=== PATIENT | female | born 1945 | race Caucasian/White ===

== ENCOUNTER 2017-05-01 07:35 | Day surgery (SDC) | payer MEDICARE ==
[~2017-05-01] VITALS: Ht 157.5 cm; Wt 66.1 kg
[2017-05-01] VITALS (7 sets, daily range): BP systolic 127–156; BP diastolic 59–77; PULSE 59–99; RESP 10–18; O2SAT 95–100
--- NOTE | 2017-05-01 06:37 | PCM.HPANE ---
Patient Data Surgeon Admitting Provider: Attending Provider:Jimenez Jones MD Primary Care Physician:Ceasar Rios Other Provider:Michael Boles Anesthesia Reason for Visit Left Breast Cancer Ht/WT & BMI Height (Feet): 5 Height (Inches): 2 Weight (Kilograms): 65.77 Body Mass Index 26.00 Allergies Coded Allergies: No Known Allergies (Unverified , 04/30/17) Past Anesthesia History Anesthesia History: Denies:: Abnormal Airway, Anesthesia Reactions, Difficult Intubation, Fam Anesthesia Reaction, Fam Malignant Hypertherm, Malignant Hyperthermia Diabetes History Hx Diabetes?: No MRSA MRSA: No Medications Home Meds Incl Beta Dayday: No Reported Medications Acetaminophen (Tylenol Arthritis)650 Mg Tablet.er650 Mg PO 05/01/17 Cholecalciferol (Vitamin D3) (Vitamin D3)400 Unit Tab.nkwz573 Unit PO DAILY 04/30/17 Calcium Carbonate (Tums)500 Mg Tab.pcyt747 Mg PO DAILY 30 Days 04/30/17 Levothyroxine (Synthroid)112 Mcg Yaysph722 Mcg PO DAILY Ref 0 04/30/17 History History of ENT Problems?: No HEENT History: Positive for:: Cataracts (bilateral surgery) Denies:: Abnormal Airway Difficult Intubation Glaucoma Hearing Problem TMJ Denture Type: Full- Upper Full- Lower Teeth Condition: No Teeth Hx of Heart Problems?: No Cardiovascular History: Denies:: AICD Abdominal Aortic Aneurism Atrial Fibrillation Chest Pain Congestive Heart Failure Coronary Artery Disease Edema Heart Murmur Hypertension Irregular Heartbeat Pacemaker Peripheral Vascular Hx of Respiratory Problem?: Yes Respiratory History: Denies:: Asthma COPD Emphysema Oxygen Administration Pneumonia Tuberculosis Use of C-PAP Machine (+CASI- snores, did not tolerate CPAP) Hx Neurologic Problems?: No Neurological History: Denies:: Alzheimer's Disease CVA Dementia Headaches Multiple Sclerosis Parkinson's Disease Seizures TIA Hx of GI Problems?: No Hx of Problems?: No Genitourinary History: Denies:: Kidney Stones Urinary Tract Infection Female Hx: Positive for:: Problems with Breasts? (left breast ca current admission problem) Denies:: Currently (hysterectomy) Skin History: Positive for:: History Skin Disorders? (right side breast bx thursday- dressing in place) Denies:: Pressure Ulcers Hx Musculoskeletal Problems?: Yes Musculoskeletal History: Positive for:: Back Injury (cervical fusions x 3) Denies:: Fibromyalgia Joint Replacement Musculoskeletal Trauma Myasthenia Gravis Osteoarthritis Rheumatoid Arthritis Systemic Lupus Hx of Psycho/Social Problems?: No Psycho Social History: Denies:: Anxiety Hx Depression Hx Surgeries?: Yes (hysterectomy, cervical fusion x 3. cataracts , breast bx) Hx Any Other Health Problems?: Yes Other History: Positive for:: Cancer (left breast current admission ) Thyroid Disease (on rx) History Blood Transfusions: Positive for:: Accept Blood Products? Denies:: Blood Transfusions Hx Diabetes: No Hx Alcohol Use: NoHx Substance Use: NoHave You Smoked inLast 12 mo: No Stop/Bang S-Snoring: Do You Snore Loudly: Yes T-Tired: feel tired, fatigued: Yes O-Obsered: Observed not breath: Yes P-Blood Pressure: treated: No B- Body Mass Index > 35 kg/m2: No A- Age over 50: Yes N- Neck Large Circumference: No G- Gender Male: No CASI Total Score: 4 CASI Risk Assessment: High Risk, =/>3 Yes CASI Category 4 OutPt Procedure: Yes Risk Assessment Category Category 1A: Patient has history of documented sleep apnea, and HAS NOT received any narcotic, sedative or anesthesia administration during this stay. Category 1B: Patient has history of documented sleep apnea, and HAS received any narcotic , sedative or anesthesia administration during this stay Category 2: Patient has SUSPECTED Obstructive Sleep Apnea, and HAS received any narcotic , sedative or anesthesia administration during this stay. Category 3: Patient has SUSPECTED Obstructive Sleep Apnea and HAS NOT received narcotic, sedative or anesthesia administration during this stay. Category 4: Outpatient in Procedural Areas with known sleep apnea or who screen positive for High Risk via the STOP/BANG questionnaire. Exam Exam General Appearance: Alert, Oriented X3, Cooperative, No Acute Distress HEENT/AIRWAY: MP 2 Lungs: Clear to Auscultation, Normal Air Movement Heart: Exam Unremarkable, Regular Rate/Rhythm, No Murmurs/Rubs/Gallops Plan Impression Patient chart reviewed, patient interviewed and anesthestic plan with risks, benefits, and alternatives discussed, and informed consent obtained. NPO per Anesth. Guidelines: Yes ASA Physical Status: ASA2 Mod Systemic Disease Anesthetic Plan: GA Bene/Risks/Altern/Consents: Yes HP Complete Prior to Induction: Yes Ruchi White MD May 01, 2017 06:37
[~2017-05-01 07:35] MED LIST: CALC500T9 PO; CHOL400T3 PO; CeFAZolin Inj 2 GM in IV Premix 1 EACH IV ONE; LEVO112T3 PO
[2017-05-01] MEDS ORDERED: Propofol 10,000 mCg/mL 20 mL Inj ONE (07:36)
[2017-05-01] MEDS ORDERED: Glycopyrrolate 0.2 MG/ML 1mL Inj ONE (07:36)
[2017-05-01] MEDS ORDERED: Dexamethasone 4 mg/mL Inj ONE (07:36)
[2017-05-01] MEDS ORDERED: Ondansetron 2 mg/mL 2 mL Inj ONE (07:36)
[2017-05-01] MEDS ORDERED: fentaNYL-PF 50 mCg/mL 2 mL Inj ONE (07:36)
[2017-05-01] MEDS: Lactated Ringer's 1,000 ML IV SCH ×2 (07:45→10:03)
[2017-05-01] MEDS ORDERED: ACET-2766 PO (08:30)
[2017-05-01] MEDS ORDERED: Bupivacaine-MPF 0.5% W/EPI 30 mL Inj INFILTRATE ONE (10:29)
[2017-05-01] MEDS ORDERED: Lactated Ringer's 500 ML IV PRN (10:31)
[2017-05-01] MEDS ORDERED: Lactated Ringer's 1,000 ML IV SCH (10:31)
[2017-05-01] MEDS ORDERED: fentaNYL-PF 50 mCg/mL 2 mL Inj IVPUSH PRN (10:35)
[2017-05-01] MEDS ORDERED: hydrALAZINE 20 mg/mL Inj IVPUSH PRN (10:35)
[2017-05-01] MEDS ORDERED: Labetalol 5 mg/mL 4 mL Inj IV PRN (10:35)
[2017-05-01] MEDS ORDERED: Atropine 0.4 mg/mL Inj IVPUSH PRN (10:35)
[2017-05-01] MEDS ORDERED: Ondansetron 2 mg/mL 2 mL Inj IVPUSH PRN (10:35)
[2017-05-01] MEDS ORDERED: MetoCLOpramide 5 mg/mL 2 mL Inj IVPUSH PRN (10:35)
[2017-05-01] MEDS ORDERED: Phenylephrine 10,000 mCg/mL Inj IVPUSH PRN (10:35)
[2017-05-01] MEDS ORDERED: Dexamethasone 4 mg/mL Inj IVPUSH PRN (10:35)
[2017-05-01] MEDS ORDERED: HYDROmorphone 1 mg/mL Inj IVPUSH PRN (10:35)
[2017-05-01] MEDS ORDERED: EPHEDrine Sulfate 50 mg/mL Inj IVPUSH PRN (10:35)
--- NOTE | 2017-05-01 11:12 | DRSVH ---
PROCEDURE: NM SENTINEL NODE INJECTION ONLY, LEFT BREAST RADIOPHARMACEUTICAL: 0.5 mCi Millipore filtered Tc-99m sulfur colloid. INDICATIONS: left breast cancer PROCEDURE: The indications, alternatives, benefits, risks, and complications of the procedure were explained to the patient. Written informed consent was obtained and placed in the chart. The area around the nip ple was prepped and draped in a sterile fashion. Tc-99m sulfur colloid was injected in the outer edg e of the areola in the left breast. No image was obtained. IMPRESSION: Administration of radiotracer into the left breast periareolar region for intra-operativ e sentinel lymph node localization. Dictated by: Abraham Dillard M.D. on 05/01/2017 at 11:10 Approved by: Abraham Dillard M.D. on 05/01/2017 at 11:11
[2017-05-01] MEDS ORDERED: Ketorolac 15 mg/mL Inj IVPUSH PRN (11:15)
[2017-05-01] MEDS ORDERED: HYDROcodone-APAP 5-325 mg Tablet PO PRN (11:15)
--- NOTE | 2017-05-01 11:18 | PCM.DISURG ---
Surgical Discharge Instruction Date of Service May 01, 2017 Dates of Hospitalization Date of Hospital Admission Providers Admitting Physician: Primary Care Physician: Ceasar Rios Attending Physician: Jimenez Jones MD Discharge Diagnosis Discharge Diagnosis Left breast cancer Diet Discharge Diet: No restrictions Activity Discharge Activity-General: No restrictions Dressing and Incisional Care Dressing Care: Allow Steri Stripes to fall off, Remove outer dressing after 24 hrs Hygiene: May shower after (24 hours) Follow Up Plan Follow Up Plan With Dr. Jones in 5 days to review pathology and make plans for next steps. Call your provider for: Fever (over 101.5), Discharge @ incision, pus discharge Jimenez Jones MD May 01, 2017 11:18
--- NOTE | 2017-05-01 11:24 | PCM.SURGOP ---
Surgical Operative Report Date of Service: May 01, 2017 Pre Operative Diagnosis Left breast cancer Post Operative Diagnosis Same Procedure: Left partial mastectomy, left axillary sentinel lymph node biopsy Surgeon and Pattern Developer: Surgeon: Jimenez Jones MD Assistants: Qian Rodriguez DO Indication for Procedure 72-year-old woman who developed a slowly enlarging palpable mass in the left breast upper outer quadrant. By ultrasound, the mass measured 2.5 cm. She had a percutaneous biopsy which demonstrated invasive ductal carcinoma with mucinous features, ER/ND positive, [id number]. Plans were made to proceed with breast conserving surgery, with left partial mastectomy and left axillary sentinel lymph node biopsy. In the meantime, breast MRI showed a small area of enhancement in a ductal distribution in the right breast. 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 Findings: There was a single sentinel node, with ex vivo gamma count of 469. The background count in the left axilla was 12. A small amount of node bearing tissue was removed adjacent to that, labeled as non-sentinel node. Procedure Details Preoperatively, she underwent left breast radiotracer injection for sentinel node identification. She was then brought to the operating room where she underwent smooth induction of general anesthesia. There was a good radiotracer signal in the left axilla, so methylene blue dye was not used. She was placed in the supine position with the left arm out, and was prepped and draped in wide sterile fashion. A procedural pause was performed according to the SCOAP checklist, and all were found to be in agreement. A transverse incision was made in the left breast upper outer quadrant, over the palpable mass. Skin flaps were raised superiorly and inferiorly. Circumferential dissection was carried out around the mass, down to the pectoralis muscle for the deep margin. The mass was dissected free from the surrounding tissue, oriented with suture. A specimen radiograph confirmed that the mass had been successfully localized along with the mammographic clip. It was sent for permanent pathology. The cavity was marked with hemoclips. The breast parenchyma was closed with an interrupted 3-0 Vicryl suture, and a running 4-0 Vicryl subcuticular stitch. A curvilinear incision was then made at the inferior border of the hairbearing skin in the left axilla. Dissection was carried down through the subcutaneous tissue until the axillary fascia was incised. Using the gamma probe as a guide, the area of maximum radiotracer activity was identified and dissected free from the surrounding structures. This corresponded to a single sentinel node, which was not pathologically enlarged. It was slightly firm, but not obviously pathologic. The ex vivo gamma count was 469. The background count after removal in the left axilla was 12. I removed a small amount of adjacent node bearing tissue, and sent that as left axillary non-sentinel node, for permanent pathology. The axillary fascia was closed with an interrupted 3-0 Vicryl suture. The skin incision was closed with a running 4-0 Vicryl subcuticular stitch. Steri-Strips and sterile dressings were applied. At the end the case all needle and sponge counts were correct 2. The patient was awakened from anesthesia without difficulty, and taken to the recovery room in satisfactory condition, having tolerated the procedure well. Complications There were no periprocedural complications identified. Surgical Specimen Removed: Yes Specimen sent to Pathology: Yes Surgical Specimen description: Left breast tissue. Left axillary sentinel node. Left axillary non-sentinel node. Anesthetic Plan: GA Grafts, Implants: None Output, Estimated Blood Loss: 20 Blood Administration during mg: No Drains: None Catheters: None Post Operative Plan Plan will be to come back for wire localized right partial mastectomy for the small area of DCIS, once final pathology is back from left breast tissue and sentinel node. copies to: Ceasar Rios; Shant Merino MD, Joshua D MD May 01, 2017 11:24
--- NOTE | 2017-05-01 12:28 | PCM.ANEP1 ---
Post Anesthesia PACU Phase 1 Assessment Vital Signs Vital Signs Date Time Temp Pulse Resp B/P Pulse Ox O2 Delivery O2 Flow Rate FiO2 05/01/17 12:22 59 18 153/59 96 Room Air 05/01/17 11:40 68 12 150/70 100 Nasal Cannula 2 05/01/17 11:30 79 11 147/74 99 Nasal Cannula 2 05/01/17 11:20 99 10 156/66 100 Simple Mask 8 05/01/17 11:15 35.9 98 10 154/77 98 Simple Mask 8 05/01/17 07:54 36.4 69 12 127/68 95 Room Air Anesthetic Administered: GA Level of Alertness: Awake, talking GOODMAN's with Equal Strength: No Pain: No Nausea or Vomiting: No CV Function & Hydration Stable: Yes Airway Device: Oxygen Delivery: Simple Mask Lungs: Clear to Auscultation, Normal Air Movement PACU Phase 2 Assessment Complications: No Follow up Care: No Patient Instructions Provided: N/A Ruchi White MD May 01, 2017 12:28
--- NOTE | 2017-05-05 07:04 | DRSVH ---
SPECIMEN LEFT BREAST: 05/01/2017 CLINICAL: Breast specimen. Correlation is made to exams dated: 04/28/2017 MRI biopsy, 04/28/2017 mammogram, 04/14/2017 ultrasound - [facility], and 04/07/2017 breast MRI - [facility]. A partial mastectomy specimen was imaged for the concerning spiculated oval mass located in the left breast at 1 o'clock posterior depth. This was described on the previous mammography, ultrasound, an d MRI reports. IMPRESSION: SPECIMEN The imaged specimen includes the lesion and a biopsy clip. This exam was interpreted at Station ID: [id number]. Osbaldo tao/deedee:05/04/2017 08:30:14 copy to: TY ABDALLA Additional referring physicians: LOTUS BALDIWN, HERMAN VARNERTR
--- NOTE | 2017-05-05 11:23 | PATH ---
SURGICAL PATHOLOGY Attending Physician:Alessia Rodriges CASE STATUS: Signed Out * Amended * PATIENT NAME: MARICHUY OPOLE PID: [id number] : 1945 DATE COLLECTED:05/01/2017 22:00 SPECIMEN: 1: Breast Mass, Excision 2: [place] Lymph Node 3: Lymph Node, Biopsy CLINICAL HISTORY: LEFT BREAST CANCER 1). LEFT BREAST TISSUE, SHORT STITCH SUPERIOR, LONG STITCH LATERAL, OUT AT 10:27 2). LEFT AXILLARY SENTINEL NODE BIOPSY OUT AT 10:53 3). LEFT NON-SENTINEL NODE OUT AT 10:57 FINAL DIAGNOSIS: 1.LEFT BREAST EXCISIONAL SPECIMEN: INFILTRATING CARCINOMA (SEE CAP CANCER SUMMARY BELOW). 2.LEFT AXILLARY SENTINEL LYMPH NODE: POSITIVE FOR METASTATIC TUMOR (SEE CAP CANCER SUMMARY BELOW). 3.LEFT NON-SENTINEL LYMPH NODE: ADIPOSE TISSUE WITH NO LYMPH NODE IDENTIFIED. CAP CANCER CASE SUMMARY INVASIVE CARCINOMA OF THE BREAST: PROCEDURE: EXCISIONAL SPECIMEN LYMPH NODE SAMPLING: SINGLE SENTINEL LYMPH NODE (PART 2) SPECIMEN LATERALITY: LEFT TUMOR SITE: UPPER OUTER QUADRANT TUMOR SIZE: 3.8 X 2.8 X 2.1 CM HISTOLOGIC TYPE: INFILTRATING DUCTAL CARCINOMA WITH FOCAL MUCINOUS FEATURES. HISTOLOGIC GRADE: HAN HISTOLOGIC SCORE 7 OF 9 Glandular/Tubular differentiation: Score 3 of 3 Nuclear Pleomorphism: Score 2 of 3 Mitotic Rate: Score 2 of 3 Overall Grade: Grade 2 of 3 (Intermediate grade) DUCTAL CARCINOMA IN SITU: Size (Extent) of DCIS: MULTIPLE FOCI IN ASSOCIATION WITH THE INFILTRATING CARCINOMA Architectural patterns: SOLID AND CRIBRIFORM Nuclear grade: Grade INTERMEDIATE Necrosis: ABSENT MARGINS INVASIVE CARCINOMA: Anterior: LESS THAN 0.1 CM Posterior: LESS THAN 0.1 CM Superior: 0.6 CM Inferior: 0.2 CM Medial: 0.4 CM Lateral: 0.1 CM DUCTAL CARCINOMA IN SITU: Anterior: 0.1 CM Posterior: 0.1 CM Superior: LESS THAN 0.1 CM Inferior: DCIS FOCALLY TOUCHES INKED MARGIN (POSITIVE MARGIN) Medial: 0.4 CM Lateral: 0.1 CM LYMPH NODES Total number of lymph nodes examined: ONE Number of sentinel lymph nodes examined: ONE Lymph Node Involvement: Number of lymph nodes with macrometastases: ONE Extranodal Extension: ABSENT Method of Evaluation of [place] Lymph Nodes: H&E SECTIONS LYMPH-VASCULAR INVASION: NEGATIVE PATHOLOGIC STAGING: AJCC, 7th ed., 2010 PRIMARY TUMOR: pT2 REGIONAL LYMPH NODES: pN1a (sn) (corrected diagnosis-previous typographical error) ANCILLARY STUDIES: Results obtained from operative report. BIOMARKERS PERFORMED ON PREVIOUS BIOPSY Estrogen Receptor (ER) Status: POSITIVE Progesterone Receptor (PgR) Status: POSITIVE HER2 (by immunohistochemistry): NEGATIVE BY IMMUNOHISTOCHEMISTRY [id number] NOTE: AMENDMENT This amendment report is issued at this time in order to correct a typographical error in the original report. In the CAP cancer summary, the original report indicates "Regional Lymph Nodes: pNa (sn)", whereas it should read pN1a (sn). The lymph node staging is therefore corrected to read pN1a (sn). GROSS DESCRIPTION: The specimens are received in formalin, labeled with the patient's name, and sublabeled as the following: (1) left breast tissue; (2) left axillary sentinel node biopsy; (3) left non-sentinel node. (1) The specimen consists of a piece of breast tissue (2.4 cm AP, 3.5 cm SI, 4.4 cm ML) with no overlying skin. The specimen is oriented with 2 black sutures (short-superior, long-lateral). No localization wire is present. The specimen is serially sectioned ML into 15 slices with the medial and lateral resection margins slices #1 and #15 respectively. The breast tissue is fatty and contains a scott-white solid firm thkh-ivil-uatrdoiwmldsh mass (3.8 x 2.8 x 2.1 cm) within slices #2-#14. The mass is less than 0.1 cm on the anterior, less than 0.1 cm from the posterior, 0.6 cm from the superior, 0.2 cm from the inferior, 0.4 cm from the medial, and 0.3 cm from the lateral resection margins. No other nodules, masses or lesions are identified. Ink code: purple-anterior; yellow-posterior; black-superior; orange-inferior; green-medial; blue-lateral. Section code: (1A-1B) lateral resection margin, perpendicularly sectioned; (1C-1D) slice #2, bisected and submitted SI; (1E-1F) slice #3, bisected and submitted SI; (1G-1H) slice #4, bisected and submitted SI; (1I-1J) slice #5, bisected and submitted SI; (1K-1L) slice #6, bisected and submitted SI; (1M-1N) slice #7, bisected and submitted SI; (1O-1P) slice #8, bisected and submitted SI; (1Q) slice #9; (1R-1S) slice #10, bisected and submitted SI; (1T-1U) slice #11, bisected and submitted SI; (1V-1W) slice #12, bisected and submitted SI; (1X-1Y) slice #13, bisected and submitted SI; (1Z-1AA) slice #14, bisected and submitted SI; (1BB-1CC) lateral resection margin, perpendicularly sectioned. Specimen entirely submitted. (2) The specimen consists of a lymph node (2.2 x 1.6 x 0.8 cm). Section code: (2A-2B) one lymph node, serially sectioned. Specimen entirely submitted. (3) The specimen consists of multiple pieces of adipose tissue (4.5 x 2.5 x 0.6 cm in aggregate). No lymph nodes are identified. Section code: (3A-3C) adipose tissue. Specimen is entirely submitted. Note: Approximate total fixation time in formalin for all specimens-53 hours and 30 minutes using a collection date of May 01, 2017 with collection times of [id number]. 05/03/17 JM MICRO DESCRIPTION: Sections from part 1 are from an excisional specimen from the left breast. The grossly-described mass is an infiltrating ductal carcinoma which generally has a nodular infiltrative pattern. Focal areas of mucinous change are also present. The tumor is of intermediate nuclear grade with intermediate mitotic activity and little or no tubular differentiation. This equates to a Paauilo score of 7 out of 9, which is an intermediate grade tumor (2 of 3). Shrinkage artifact is quite prominent, and in some areas it is difficult to ascertain whether this might represent vascular invasion. For this reason, immunohistochemistry is performed utilizing antibodies against CD31. The areas that are studied are those that are most suspicious for possible vascular invasion, In these areas the suspicious areas are negative, which equates to prominent shrinkage artifact with no evidence of vascular invasion. DCIS is present in multiple areas, and it is of both a solid and cribriform type with intermediate nuclear grade and no definite necrosis. The DCIS focally touches the inked margin in one small focus in the inferior margin. It is less than 0.1 cm from both the superior and lateral margins. DCIS is present 0.5 cm from the posterior margin. The infiltrating carcinoma is 0.1 cm from the lateral margin, less than 0.1 cm from the posterior margin. There are focal areas of necrosis present within the infiltrating component of this tumor. Sections from part 2 are from a left axillary sentinel lymph node. The lymph node is positive for metastatic carcinoma with multiple foci of tumor present. The largest tumor focus measures 0.4 cm in maximum dimension. There is no evidence of extranodal extension. Part 3 consists of adipose tissue with no evidence of lymph node. This test was developed and its performance characteristics determined by [employer]. It has not been cleared or approved by the [place]. S. Food and Drug Administration. The FDA has determined that such clearance or approval is not necessary. This test is used for clinical purposes. It should not be regarded as investigational or for research. ICD-9 CODES: CPT CODES: 1: 20746, 72975 2: 46313 3: 25599 AMENDMENT(S): Amended: 05/07/2017 by Sunshine Retana Reason:Typographical Error Previous Signout Date: 05/05/2017 Electronically Signed Out Bret Haines MD [facility] [address], [place] [address] Technical component performed at [facility], [facility] [address], [place], [address]
== END 2017-05-01 23:59 | disposition home or self-care (01) ==
LOC: SAS 07:35
PROVIDERS: ATTEND Student in an Organized Health Care Education/Training Program
DX: C50.412 Malignant neoplasm of upper-outer quadrant of left female breast (principal); E03.9 Hypothyroidism, unspecified; G47.61 Periodic limb movement disorder; M85.80 Other specified disorders of bone density and structure, unspecified site; M19.90 Unspecified osteoarthritis, unspecified site; G25.81 Restless legs syndrome; G47.33 Obstructive sleep apnea (adult) (pediatric); Z86.010 Personal history of colon polyps; Z90.710 Acquired absence of both cervix and uterus; Z87.891 Personal history of nicotine dependence; Z17.0 Estrogen receptor positive status [ER+]
CPT/HCPCS: 19301; 38525; 38792; 76098; A9541; J0690; J1100; J1885; J2250; J2405; J3010; J7120

== ENCOUNTER 2017-05-25 09:40 | Day surgery (SDC) | payer MEDICARE ==
[2017-05-25] VITALS (12 sets, daily range): BP systolic 106–182; BP diastolic 55–80; PULSE 64–106; RESP 10–20; O2SAT 87–99
[~2017-05-25] VITALS: Ht 157.5 cm; Wt 68.3 kg
--- NOTE | 2017-05-25 06:47 | PCM.HPANE ---
Patient Data Surgeon Admitting Provider: Attending Provider:Jimenez Jones MD Primary Care Physician:Ceasar Rios Other Provider:Michael Boles Anesthesia Reason for Visit Right Breast Dcis Ht/WT & BMI Height (Feet): 5 Height (Inches): 2 Weight (Kilograms): 66.67 Body Mass Index 27.00 Allergies Coded Allergies: No Known Allergies (Unverified , 04/30/17) Past Anesthesia History Anesthesia History: Denies:: Abnormal Airway, Anesthesia Reactions, Difficult Intubation, Fam Anesthesia Reaction, Fam Malignant Hypertherm, Malignant Hyperthermia Diabetes History Hx Diabetes?: No MRSA MRSA: No Medications Reported Medications Acetaminophen (Tylenol Arthritis)650 Mg Tablet.er650 Mg PO 05/01/17 Cholecalciferol (Vitamin D3) (Vitamin D3)400 Unit Tab.npmm912 Unit PO DAILY 04/30/17 Calcium Carbonate (Tums)500 Mg Tab.fjwi813 Mg PO DAILY 30 Days 04/30/17 Levothyroxine (Synthroid)112 Mcg Cikieg556 Mcg PO DAILY Ref 0 04/30/17 History History of ENT Problems?: No HEENT History: Positive for:: Cataracts (bilateral surgery) Denies:: Abnormal Airway Difficult Intubation Hearing Problem TMJ Hx of Heart Problems?: No Cardiovascular History: Denies:: AICD Abdominal Aortic Aneurism Atrial Fibrillation Chest Pain Congestive Heart Failure Edema Heart Murmur Hypertension Irregular Heartbeat Pacemaker Hx of Respiratory Problem?: Yes Respiratory History: Denies:: Asthma COPD Emphysema Oxygen Administration Pneumonia Tuberculosis Use of C-PAP Machine (CASI +, snores, does not tolerate CPAP) Hx Neurologic Problems?: No Neurological History: Denies:: Alzheimer's Disease CVA Dementia Dizziness Headaches Multiple Sclerosis Parkinson's Disease Seizures TIA Hx of GI Problems?: No Hx of Problems?: No Genitourinary History: Denies:: Kidney Stones Urinary Tract Infection Female Hx: Positive for:: Problems with Breasts? (bilateral breast ca current admission problem) Denies:: Currently (hysterectomy) Skin History: Denies:: History Skin Disorders? Pressure Ulcers Hx Musculoskeletal Problems?: Yes Musculoskeletal History: Positive for:: Back Injury (hx of cervical fusions x 3) Denies:: Fibromyalgia Joint Replacement Musculoskeletal Trauma Myasthenia Gravis Osteoarthritis Rheumatoid Arthritis Systemic Lupus Hx of Psycho/Social Problems?: No Psycho Social History: Denies:: Anxiety Hx Depression Hx Surgeries?: Yes (cervical fusion, left partial mastectomy) Hx Any Other Health Problems?: Yes Other History: Positive for:: Cancer (bilateral breast) Thyroid Disease History Blood Transfusions: Denies:: Blood Transfusions Hx Diabetes: No Hx Alcohol Use: NoHx Substance Use: NoHave You Smoked inLast 12 mo: No Stop/Bang S-Snoring: Do You Snore Loudly: Yes P-Blood Pressure: treated: No B- Body Mass Index > 35 kg/m2: No A- Age over 50: Yes N- Neck Large Circumference: No G- Gender Male: No Risk Assessment Category Category 1A: Patient has history of documented sleep apnea, and HAS NOT received any narcotic, sedative or anesthesia administration during this stay. Category 1B: Patient has history of documented sleep apnea, and HAS received any narcotic , sedative or anesthesia administration during this stay Category 2: Patient has SUSPECTED Obstructive Sleep Apnea, and HAS received any narcotic , sedative or anesthesia administration during this stay. Category 3: Patient has SUSPECTED Obstructive Sleep Apnea and HAS NOT received narcotic, sedative or anesthesia administration during this stay. Category 4: Outpatient in Procedural Areas with known sleep apnea or who screen positive for High Risk via the STOP/BANG questionnaire. Plan Impression Patient chart reviewed, patient interviewed and anesthestic plan with risks, benefits, and alternatives discussed, and informed consent obtained. NPO per Anesth. Guidelines: Yes Ruchi White MD May 25, 2017 06:47
[~2017-05-25 09:40] MED LIST changes: +ACET-2766 PO; -CeFAZolin Inj 2 GM in IV Premix 1 EACH IV ONE; +Lactated Ringer's 1,000 ML IV ONE
[2017-05-25] MEDS ORDERED: Propofol 10,000 mCg/mL 20 mL Inj ONE (09:41)
[2017-05-25] MEDS ORDERED: fentaNYL-PF 50 mCg/mL 2 mL Inj ONE (09:41)
[2017-05-25] MEDS ORDERED: Ondansetron 2 mg/mL 2 mL Inj ONE (09:41)
[2017-05-25] MEDS ORDERED: Dexamethasone 4 mg/mL Inj ONE (09:41)
[2017-05-25] MEDS: CeFAZolin Inj 2 GM in IV Premix 1 EACH IV SCH ×2 (12:34→12:54)
[2017-05-25] MEDS ORDERED: Bupivacaine-MPF 0.5% W/EPI 30 mL Inj INFILTRATE ONE (13:12)
[2017-05-25] MEDS ORDERED: HepLOK Flush 100 unit/mL 5 mL Inj IVFLUSH ONE (13:24)
[2017-05-25] MEDS ORDERED: Lactated Ringer's 1,000 ML IV SCH (14:15)
[2017-05-25] MEDS ORDERED: Dexamethasone 4 mg/mL Inj IVPUSH PRN (14:15)
[2017-05-25] MEDS ORDERED: Labetalol 5 mg/mL 4 mL Inj IV PRN (14:15)
[2017-05-25] MEDS ORDERED: Lactated Ringer's 500 ML IV PRN (14:15)
[2017-05-25] MEDS ORDERED: Phenylephrine 10,000 mCg/mL Inj IVPUSH PRN (14:15)
[2017-05-25] MEDS ORDERED: EPHEDrine Sulfate 50 mg/mL Inj IVPUSH PRN (14:15)
[2017-05-25] MEDS ORDERED: MetoCLOpramide 5 mg/mL 2 mL Inj IVPUSH PRN (14:15)
[2017-05-25] MEDS ORDERED: Atropine 0.4 mg/mL Inj IVPUSH PRN (14:15)
[2017-05-25] MEDS ORDERED: Ondansetron 2 mg/mL 2 mL Inj IVPUSH PRN ×2 (14:15→20:15)
--- NOTE | 2017-05-25 15:11 | PCM.SURGOP ---
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 The margins on the invasive carcinoma were all negative, although margins were very close on DCIS which was associated with the primary tumor, with the inferior margin being positive, all other margins being 1 mm, with the exception of the medial margin at 4 mm. She was also found on MRI to have a small area of DCIS in the right breast, and her oncologist had plans to treat her with adjuvant chemotherapy after surgery. After discussion of risks and benefits, she agreed to proceed with wire localized right partial mastectomy, reexcision of left partial mastectomy site, Port-A-Cath placement. Findings: The right breast clip was successfully localized. There was no gross evidence of residual disease in the left breast. The Port-A-Cath was placed on the left side, with the tip at the cavoatrial junction. Procedure Details After smooth induction of general anesthesia with an LMA, the patient was positioned in the supine position with both arms tucked. She was prepped and draped in wide sterile fashion. A procedural pause was performed according to the SCOAP checklist, and all were found to be in agreement. The patient was placed in Trendelenburg position. The left subclavian vein was accessed with a finder needle on the second pass, and the 0.035 inch wire was passed into the vena cava. It was confirmed with fluoroscopy. A subcutaneous pocket was created on the left upper chest wall using electrocautery. The port reservoir was secured to the fascia with interrupted 3-0 Vicryl sutures. The catheter was connected to the tunneler, and tunneled under the subcutaneous tissue to the venipuncture site. The introducer sheath and dilator was passed over the wire under fluoroscopic guidance. The catheter was then passed through the tear-away sheath into the vena cava. The sheath was removed. The catheter was then pulled back under fluoroscopic guidance until the tip was positioned at the cavoatrial junction. The catheter was cut to size, and connected to the port reservoir. The port was accessed using a Gordon needle, which aspirated and flushed easily. The port was then flushed with the final heparin flush, consisting of 100 units per mL, a total of 4 mL. A final fluoroscopic image confirmed that the port was in good position with no kinks, and there was no evidence of pneumothorax. The incision was closed with a running 4-0 Monocryl subcuticular stitch. She was then reprepped and draped with both arms out. Wire localized right partial mastectomy was performed next. A radial incision was made in the 12 o' clock position of the right breast. Skin flaps were raised. The wire was delivered into the wound from the medial aspect. Using the wire as a guide, circumferential dissection was carried out with electrocautery. The tip of the wire was encountered, which was beyond the known lesion. The excised tissue from the upper-inner quadrant was oriented with suture. A specimen mammograph was obtained, confirming that the mammographic clip had been successfully localized. The partial mastectomy cavity was marked with hemoclips circumferentially. Right breast tissue was sent for permanent pathology the breast parenchyma was closed with interrupted 3-0 Vicryl sutures from medial to lateral. The skin incision was closed with a running 4-0 Vicryl subcuticular stitch. The left breast incision was then reopened sharply. Dissection was carried through the subcutaneous tissue and superficial breast parenchyma until the seroma cavity was encountered and evacuated. Shave margins were then obtained from all aspects of the cavity, with the exception that the medial aspect of the cavity was not reexcised. The anterior margin was incorporated into both the inferior and superior margins. The anteroinferior margin was excised with electrocautery, oriented with suture, and sent for permanent pathology. The anterosuperior margin was excised, oriented with suture, and sent for permanent pathology. The lateral margin was excised, oriented with suture, and sent for permanent pathology. The posterior margin was excised, oriented with suture, and sent for permanent pathology. The breast parenchyma was then closed with interrupted 3-0 Vicryl suture. The skin incision was closed with a running 4-0 Vicryl subcuticular stitch. Dermabond was applied to all the incisions as dressings. At the end of the case all needle and sponge count were correct 2. The patient was awakened from anesthesia without difficulty, and taken to the recovery room in satisfactory condition, having tolerated the procedure well. Complications There were no periprocedural complications identified. Surgical Specimen Removed: Yes Specimen sent to Pathology: Yes Surgical Specimen description: Right breast tissue, upper inner quadrant. Left breast anteroinferior margin. Left breast anterosuperior margin. Left breast lateral margin. Left breast posterior margin. Anesthetic Plan: GA Grafts, Implants: Implants-See Implant Record Output, Estimated Blood Loss: 20 Blood Administration during mg: No Drains: None Catheters: None copies to: Ceasar Rios; Shant Merino MD, Joshua D MD May 25, 2017 15:11
[2017-05-25] MEDS ORDERED: Lactated Ringer's 1,000 ML IV ONE (15:16)
--- NOTE | 2017-05-25 15:17 | PCM.DISURG ---
Surgical Discharge Instruction Date of Service May 25, 2017 Dates of Hospitalization Date of Hospital Admission Providers Admitting Physician: Primary Care Physician: Ceasar Rios Attending Physician: Jimenez Jones MD Discharge Diagnosis Post Operative diagnosis Same Diet Discharge Diet: No restrictions Activity Discharge Activity-General: Be up and about, Activity as pain allows, No driving while taking narcotic Dressing and Incisional Care Dressing Instructions: Dermabond will begin to peel off in about 7 days. Hygiene: May shower Follow Up Plan Follow Up Plan Follow up with Dr. Jones in 10-14 days. Call your provider for: Fever, Nausea, Vomiting, Wound redness, Increasing wound pain, Warmth to touch, Discharge @ incision, pus discharge Darwin Puente MD May 25, 2017 15:17
--- NOTE | 2017-05-25 15:29 | PCM.ANEP1 ---
Post Anesthesia PACU Phase 1 Assessment Vital Signs Vital Signs Date Time Temp Pulse Resp B/P Pulse Ox O2 Delivery O2 Flow Rate FiO2 05/25/17 15:20 94 11 140/66 99 Simple Mask 10 05/25/17 15:15 96 12 140/70 99 Simple Mask 10 05/25/17 15:05 36.6 106 13 106/67 99 Simple Mask 10 05/25/17 10:08 36.3 64 16 147/70 93 Room Air Anesthetic Administered: GA Level of Alertness: Awake, talking GOODMAN's with Equal Strength: Yes Pain: No Nausea or Vomiting: No CV Function & Hydration Stable: Yes Airway Device: Oxygen Delivery: Simple Mask Lungs: Clear to Auscultation PACU Phase 2 Assessment Patient Instructions Provided: N/A Ruchi White MD May 25, 2017 15:29
[2017-05-25] MEDS: fentaNYL-PF 50 mCg/mL 2 mL Inj IVPUSH PRN ×3 (15:33→16:00)
[2017-05-25] MEDS: HYDROmorphone 1 mg/mL Inj IVPUSH PRN ×2 (15:33→16:00)
[2017-05-25] MEDS: oxyCODONE-Acetamin 5-325 mg Tablet PO PRN ×3 (16:14→20:27)
--- NOTE | 2017-05-26 00:57 | NUR ---
Post Op Admit Pt. arrived on floor at 2149. Pt. was alert and oriented x3. Pt. was on 2 liters of oxygen via nc. Pt. has peripheral IV which is intact and patent. Will continue to monitor.
[2017-05-26 05:03] VITALS: BP 130/72; PULSE 70; RESP 17; O2SAT 96
--- NOTE | 2017-05-26 08:11 | DRSVH ---
PROCEDURE: X-RAY CHEST ONE VIEW ([id number]) INDICATIONS: hypoxia TECHNIQUE: One view of the chest was acquired. COMPARISON: None. FINDINGS: Surgical changes and devices: Surgical clips in both breasts with postsurgical gas in the left breast . Left-sided portacatheter tip in the upper SVC. Lungs and pleura: Trace left pleural effusions. No pneumothorax. Lungs are clear. Mediastinum: Mediastinal contours appear normal. Heart size is normal. Bones and chest wall: No suspicious bony lesions. Overlying soft tissues appear unremarkable. IMPRESSION: 1. Bilateral breast postoperative changes. 2. Trace left pleural effusion. Dictated by: Jori Ly M.D. on 05/26/2017 at 8:03 Approved by: Jori Ly M.D. on 05/26/2017 at 8:04
[2017-05-26 08:42] VITALS: BP 140/69; PULSE 72; RESP 16; O2SAT 94
[2017-05-26 10:16] VITALS: O2SAT 94
--- NOTE | 2017-05-26 14:40 | NUR ---
discharged home with family. Good pain control, only taking Tylenol. Incision OK. Satting 93-94% on RA, lungs sound clear, no respiratory distress. Pt will have f/u with Dr Jones, and he told her she should get a call by Thursday to give her results of biopsy. Pt is eating/drinking well, ambulatory
--- NOTE | 2017-05-26 23:54 | PCM.DC.SUR ---
Discharge Summary Date of Service: May 26, 2017 Date of Hospital Admission: May 25, 2017 Date of Operation(s): May 25, 2017 Date of Discharge: May 26, 2017 at 13:05 Diagnosis at Time of Discharge Hypoxia Problems: Brief History and Physical: Ms. Fernández is a very pleasant 72 year old woman with left breast invasive cancer and right breast DCIS. She had previously undergone left partial mastectomy but was found to have positive margins on specimen pathology. She returned to the OR on May 25 for re-excision left partial mastectomy site, right partial mastectomy for DCIS, and placement of left subclavian port-a- cath. The patient tolerated the operation well, and there was no complication nor incident. In the PACU, she had a persistent O2 requirement and good not maintain oxygen saturations >90% on room air. She was therefore admitted for observation. Hospital Course: The patient was admitted to the general surgical floor for intensive nursing care and observation overnight. She had minimal complaints and did not endorse and shortness of breath or chest pain. By the morning of POD#1 she had weaned to room air without any desaturations. CXR confirmed no pneumothorax or acute cardiopulmonary process. She was therefore deemed stable for discharge to home. The patient had minimal complaints during her hospital course including no shortness of breath, chest pain, very mild incisional pain, and no nausea or vomiting. She remained afebrile, was tolerating a regular diet, and was entirely tolerant of ambulation by the time of discharge. Strict return precautions were established and the patient was given the appropriate instructions for outpatient follow up and prescriptions. Disposition: Home Follow-up Plan: Return to follow up with Dr. Jones in 7-10 days. Acetaminophen (Tylenol Arthritis) 650 Mg Tablet.er 650 MG PO (Reported) Calcium Carbonate (Tums) 500 Mg Tab.chew 500 MG PO DAILY (Reported) Cholecalciferol (Vitamin D3) (Vitamin D3) 400 Unit Tab.chew 400 UNIT PO DAILY ( Reported) Levothyroxine (Synthroid) 112 Mcg Tablet 112 MCG PO DAILY (Reported) Darwin Puente MD May 26, 2017 23:54
--- NOTE | 2017-05-28 11:19 | PATH ---
SURGICAL PATHOLOGY Attending Physician:Alessia Rodriges CASE STATUS: Signed Out PATIENT NAME: MARICHUY POOLE PID: [id number] : 1945 DATE COLLECTED:05/25/2017 00:00 SPECIMEN: 1: Breast mass, oriented 2: Breast Margin 3: Breast Margin 4: Breast Margin 5: Breast Margin CLINICAL HISTORY: RIGHT BREAST DCIS 1). RIGHT BREAST TISSUE, UPPER INNER QUADRANT 2). LEFT BREAST SUPERIOR MARGIN 3). LEFT BREAST ANTEROSUPERIOR 4). LEFT BREAST LATERAL MARGIN 5). LEFT BREAST POSTERIOR MARGIN FINAL DIAGNOSIS: 1.RIGHT BREAST TISSUE, UPPER INNER QUADRANT: DCIS OF THE BREAST, SEE CAP CANCER SUMMARY BELOW. 2. 5.LEFT BREAST SUPERIOR MARGIN RE-EXCISION, LEFT BREAST ANTERIOR SUPERIOR MARGIN RE-EXCISION, LEFT BREAST LATERAL MARGIN RE-EXCISION, AND LEFT BREAST POSTERIOR MARGIN RE-EXCISION: PROMINENT POST-OPERATIVE INFLAMMATORY CHANGES FROM PREVIOUS EXCISION WITH NO EVIDENCE OF RESIDUAL MALIGNANCY IN ANY OF THE FOUR SPECIMENS. 1. CAP CANCER CASE SUMMARY Ductal carcinoma in situ of the breast: Procedure: Excision with wire localization Specimen laterality: Left Tumor site: Upper inner quadrant Size of DCIS: Estimated size of largest focus: 1.1 cm Number of blocks with DCIS: 3 Histologic type: Ductal carcinoma in situ Architectural patterns: Cribriform Nuclear grade: Grade 1 (low) Necrosis: Focally present Margins: Anterior: Distance from anterior margin greater than 1.0 cm Posterior: Distance from posterior margin 0.7 cm Superior: Distance from superior margin greater than 1.0 cm Inferior: Distance from inferior margin greater than 1.0 cm Medial: Distance from medial margin greater than 1.0 cm Lateral: Distance from lateral margin less than 0.1 cm Pathologic staging: AJCC, 7th ed., 2010 Primary tumor: pTis (DCIS) Regional lymph nodes: pNX Ancillary studies: Not performed on this specimen. Presumed performed on previous biopsy with results not available at this time. Additional Findings: Rare foci of atypical ductal hyperplasia identified (not near any margin). ICD10 code D05.12 GROSS DESCRIPTION: The specimens are received in formalin, labeled with the patient's name, and sublabeled as the following: (1) right breast tissue, upper inner quadrant; (2) left breast anteroinferior margin; (3) left breast anterosuperior margin; (4) left breast lateral margin; (5) left breast posterior margin. (1) The specimen consists of a piece of breast tissue (2.6 cm AP, 4.4 cm SI, 3.3 cm ML) with no overlying skin. The specimen is oriented with 2 black sutures (short-superior, long-lateral). A localization wire is present. The specimen is serially sectioned SI into 19 slices with the superior and inferior resection margins slices #1 and #19 respectively. The breast tissue is fibrofatty and contains a scott-white solid firm irregular mass (2.3 x 1.7 x 1.5 cm) within slices #3-#12. The mass is 0.3 cm from the anterior, 0.8 cm from the posterior, 0.6 cm from the superior, 1.5 cm from the inferior, 0.7 cm from the medial, and 0.4 cm from the lateral resection margins. No other nodules, masses or lesions are identified. A silver colored metal biopsy clip is identified in slice #6. Ink code: purple-anterior; yellow-posterior; black-superior; orange-inferior; green-medial; blue-lateral. Section code: (1A) superior resection margin, perpendicularly sectioned; (1B) slice #2, tissue adjacent to mass; (1C) slice #3; (1D) slice #4; (1E) slice #5; (1F) slice #6; (1G) slice #7; (1H-1I) slice #8, bisected and submitted AP; (1J-1K) slice #9, bisected and submitted AP; (1L) slice #10; (1M) slice #11; (1N) slice #12; (1O) slice #13; (1P) slice #14; (1Q) slice #15; (1R) slice #16; (1S) slice #17; (1T) slice #18; (1U) inferior resection margin, perpendicularly sectioned. Specimen entirely submitted. (2) The specimen consists of a piece of breast tissue (2.5 cm AP, 0.7 cm SI, 4.0 cm ML) with no overlying skin. The specimen is oriented with 2 black sutures (short-posterior, long-lateral). No localization wire is present. The breast tissue is fibrofatty with no nodules, masses, or lesions identified. Ink code: orange-anterior; black-posterior; purple-superior; yellow-inferior; green-medial; blue-lateral. Section code: (2A-2G) breast tissue, serially sectioned and submitted LM. Specimen entirely submitted. (3) The specimen consists of a piece of breast tissue (2.5 cm AP, 0.7 cm SI, 2.9 cm ML) with no overlying skin. The specimen is oriented with 2 black sutures (short-posterior, long-lateral). No localization wire is present. The breast tissue is fibrofatty with no nodules, masses, or lesions identified. Ink code: purple-anterior; yellow-posterior; black-superior; orange-inferior; green-medial; blue-lateral. Section code: (3A-3F) breast tissue, serially sectioned and submitted ML. Specimen entirely submitted. (4) The specimen consists of a piece of breast tissue (3.1 cm AP, 4.5 cm SI, 1.3 cm ML) with no overlying skin. The specimen is oriented with 2 black sutures (short-superior, long-posterior). No localization wire is present. The breast tissue is fatty with no nodules, masses, or lesions identified. Ink code: purple-anterior; yellow-posterior; black-superior; orange-inferior; green-medial; blue-lateral. Section code: (4A-4F) breast tissue, serially sectioned and submitted ML. Specimen entirely submitted. (5) The specimen consists of a piece of breast tissue (0.4 cm AP, 2.1 cm SI, 4.7 cm ML) with no overlying skin. The specimen is oriented with 2 black sutures (short-posterior, long-lateral). No localization wire is present. The breast tissue is fibrofatty with no nodules, masses, or lesions identified. Ink code: purple-anterior; yellow-posterior; black-superior; orange-inferior; green-medial; blue-lateral. Section code: (5A-5E) breast tissue, serially sectioned and submitted ML. Specimen entirely submitted. Note: Approximate total fixation time in formalin for all specimens-31 hours and 30 minutes using a collection date of May 25, 2017 with times in the fixative of [id number]. MICRO DESCRIPTION: See diagnosis. ICD-9 CODES: CPT CODES: 1: 10662 2: 53125 3: 30796 4: 38569 5: 72906 Electronically Signed Out Bret Haines MD [facility] [address], [place] [address] Technical component performed at [facility], [facility] [address], [place], [address]
== END 2017-05-26 13:05 | disposition home or self-care (01) ==
LOC: SAS 09:40 → OSC 21:42 → SAS 05-26 13:05
PROVIDERS: ATTEND Student in an Organized Health Care Education/Training Program
PROC: B5181ZA Fluoroscopy of Superior Vena Cava using Low Osmolar Contrast, Guidance (ICD-10-PCS; 2017-05-25)
PROC: 0HBV0ZZ Excision of Bilateral Breast, Open Approach (ICD-10-PCS; principal; 2017-05-25 12:45)
PROC: 02HV33Z Insertion of Infusion Device into Superior Vena Cava, Percutaneous Approach (ICD-10-PCS; 2017-05-25 12:45)
DX: C50.412 Malignant neoplasm of upper-outer quadrant of left female breast (principal); D05.11 Intraductal carcinoma in situ of right breast; R09.02 Hypoxemia; Z87.891 Personal history of nicotine dependence; G25.81 Restless legs syndrome; E03.9 Hypothyroidism, unspecified
CPT/HCPCS: 19125; 19301; 36561; 71010; 76098; 77001; C1788; J0690; J1100; J1170; J1642; J2250; J2405; J2765; J3010; J7120

== ENCOUNTER 2017-06-10 05:46 | Day surgery (SDC) | payer MEDICARE ==
[2017-06-10] VITALS (11 sets, daily range): BP systolic 119–136; BP diastolic 49–65; PULSE 64–76; RESP 8–16; O2SAT 92–97
[~2017-06-10] VITALS: Ht 157.5 cm; Wt 66.6 kg
[~2017-06-10 05:46] MED LIST changes: -ACET-2766 PO; -Lactated Ringer's 1,000 ML IV ONE; +Lactated Ringer's 1,000 ML IV SCH
[2017-06-10] MEDS ORDERED: fentaNYL-PF 50 mCg/mL 2 mL Inj ONE (05:47)
[2017-06-10] MEDS ORDERED: Ondansetron 2 mg/mL 2 mL Inj ONE (05:47)
[2017-06-10] MEDS ORDERED: Propofol 10,000 mCg/mL 20 mL Inj ONE (05:47)
[2017-06-10] MEDS ORDERED: EPHEDrine/NS 5 mg/mL 5 mL Syringe ONE (05:47)
[2017-06-10] MEDS ORDERED: Dexamethasone 4 mg/mL Inj ONE (05:47)
[2017-06-10] MEDS: Lactated Ringer's 1,000 ML IV SCH ×2 (06:17→07:24)
--- NOTE | 2017-06-10 07:24 | PCM.HPANE ---
Patient Data Date of Service: Jun 10, 2017 Surgeon Admitting Provider: Attending Provider:Jimenez Jones MD Primary Care Physician:Ceasar Rios Other Provider:Michael Boles Anesthesia Reason for Visit Left Breast Cancer Ht/WT & BMI Height (Feet): 5 Height (Inches): 2.00 Weight (Kilograms): 66.6 Body Mass Index 27.00 Allergies Coded Allergies: No Known Allergies (Unverified , 04/30/17) Past Anesthesia History Anesthesia History: Denies:: Abnormal Airway, Anesthesia Reactions, Difficult Intubation, Fam Anesthesia Reaction, Fam Malignant Hypertherm, Malignant Hyperthermia Diabetes History Hx Diabetes?: No MRSA MRSA: No Medications Home Meds Incl Beta Dayday: No Reported Medications Cholecalciferol (Vitamin D3) (Vitamin D3)400 Unit Tab.[id number] Unit PO DAILY 04/30/17 Calcium Carbonate (Tums)500 Mg Tab.qpez076 Mg PO DAILY 30 Days 04/30/17 Levothyroxine (Synthroid)112 Mcg [id number] Mcg PO DAILY Ref 0 04/30/17 Discontinued Reported Medications Acetaminophen (Tylenol Arthritis)650 Mg Tablet.er650 Mg PO 05/01/17 History History of ENT Problems?: No HEENT History: Positive for:: Cataracts (bilateral surgery) Denies:: Abnormal Airway Difficult Intubation Dysphagia Hearing Problem Sinus Problem TMJ Denture Type: Full- Upper Full- Lower Teeth Condition: No Teeth Hx of Heart Problems?: No Cardiovascular History: Denies:: AICD Abdominal Aortic Aneurism Atrial Fibrillation Chest Pain Congestive Heart Failure Coronary Artery Disease Edema Heart Murmur Hypertension Irregular Heartbeat Pacemaker Hx of Respiratory Problem?: No Respiratory History: Denies:: Asthma COPD Cough Dyspnea Emphysema Hemoptysis Oxygen Administration Pneumonia Pulmonary Embolism Tuberculosis Use of C-PAP Machine (CASI +, snores, does not tolerate CPAP) Use of Inhalers / NEBS Hx Neurologic Problems?: No Neurological History: Denies:: Alzheimer's Disease CVA Dementia Dizziness Headaches Multiple Sclerosis Parkinson's Disease Seizures TIA Hx of GI Problems?: No Hx of Problems?: No Genitourinary History: Denies:: HX of Hemodialysis Kidney Stones Urinary Tract Infection HX of Peritoneal Dialysis: No Female Hx: Positive for:: Problems with Breasts? (Breast Cancer) Denies:: Currently Endometriosis Pelvic Inflammatory Skin History: Positive for:: History Skin Disorders? (Psoarsis "occasionally". ) Denies:: Pressure Ulcers Hx Musculoskeletal Problems?: Yes Musculoskeletal History: Denies:: Back Injury Degenerative Joint Fibromyalgia Joint Replacement Musculoskeletal Trauma Myasthenia Gravis Osteoarthritis Rheumatoid Arthritis Systemic Lupus Hx of Psycho/Social Problems?: No Psycho Social History: Denies:: Anxiety Hx Depression Hx Surgeries?: Yes (Breast 05/2017) Hx Any Other Health Problems?: Yes Other History: Positive for:: Cancer (Breast Cancer) Hospitalization Thyroid Disease (Hypothyroid) Denies:: Endocrine Disease History Blood Transfusions: Positive for:: Accept Blood Products? Denies:: Blood Transfuse Reaction Blood Transfusions Hx Diabetes: No Hx Alcohol Use: NoHx Substance Use: No Smoking Status: Former Smoker Have You Smoked inLast 12 mo: No Stop/Bang S-Snoring: Do You Snore Loudly: Yes T-Tired: feel tired, fatigued: Yes O-Obsered: Observed not breath: Yes P-Blood Pressure: treated: No B- Body Mass Index > 35 kg/m2: No A- Age over 50: Yes N- Neck Large Circumference: No G- Gender Male: No CASI Total Score: 4 CASI Risk Assessment: High Risk, =/>3 Yes Risk Assessment Category Category 1A: Patient has history of documented sleep apnea, and HAS NOT received any narcotic, sedative or anesthesia administration during this stay. Category 1B: Patient has history of documented sleep apnea, and HAS received any narcotic , sedative or anesthesia administration during this stay Category 2: Patient has SUSPECTED Obstructive Sleep Apnea, and HAS received any narcotic , sedative or anesthesia administration during this stay. Category 3: Patient has SUSPECTED Obstructive Sleep Apnea and HAS NOT received narcotic, sedative or anesthesia administration during this stay. Category 4: Outpatient in Procedural Areas with known sleep apnea or who screen positive for High Risk via the STOP/BANG questionnaire. Exam Exam Vital Signs Vital Signs Date Time Temp Pulse Resp B/P Pulse Ox O2 Delivery O2 Flow Rate FiO2 06/10/17 06:03 36.3 64 16 131/64 95 Room Air General Appearance: Alert, Oriented X3, Cooperative, No Acute Distress HEENT/AIRWAY: MP 2 Lungs: Normal Air Movement Heart: Exam Unremarkable Meds/Labs/Diagnostics Admission Meds Current Medications Lactated Ringer's (Lr) 1,000 ml @ 120 mls/hr [id number] IV Last administered on t 06:17; Start 06/10/17 at 05:00; Stop 06/10/17 at 13:19 Plan Impression Patient chart reviewed, patient interviewed and anesthestic plan with risks, benefits, and alternatives discussed, and informed consent obtained. NPO per Anesth. Guidelines: Yes ASA Physical Status: ASA2 Mod Systemic Disease Anesthetic Plan: GA Bene/Risks/Altern/Consents: Yes HP Complete Prior to Induction: Yes Oscar Du MD Jun 10, 2017 06:58
[2017-06-10] MEDS ORDERED: Bupivacaine-MPF 0.5% W/EPI 30 mL Inj INFILTRATE ONE (07:40)
[2017-06-10] MEDS ORDERED: Lactated Ringer's 500 ML IV PRN (07:42)
[2017-06-10] MEDS ORDERED: Lactated Ringer's 1,000 ML IV SCH (07:42)
[2017-06-10] MEDS ORDERED: Labetalol 5 mg/mL 4 mL Inj IV PRN (07:45)
[2017-06-10] MEDS ORDERED: EPHEDrine Sulfate 50 mg/mL Inj IVPUSH PRN (07:45)
[2017-06-10] MEDS ORDERED: Atropine 0.4 mg/mL Inj IVPUSH PRN (07:45)
[2017-06-10] MEDS ORDERED: fentaNYL-PF 50 mCg/mL 2 mL Inj IVPUSH PRN (07:45)
[2017-06-10] MEDS ORDERED: HYDROmorphone 1 mg/mL Inj IVPUSH PRN (07:45)
[2017-06-10] MEDS ORDERED: Ondansetron 2 mg/mL 2 mL Inj IVPUSH PRN (07:45)
[2017-06-10] MEDS ORDERED: MetoCLOpramide 5 mg/mL 2 mL Inj IVPUSH PRN (07:45)
[2017-06-10] MEDS ORDERED: Phenylephrine 10,000 mCg/mL Inj IVPUSH PRN (07:45)
[2017-06-10] MEDS ORDERED: Dexamethasone 4 mg/mL Inj IVPUSH PRN (07:45)
--- NOTE | 2017-06-10 08:08 | PCM.SURGOP ---
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 The lateral margin on DCIS from the right breast was close at less than 1 mm. All other margins were widely negative. She also had 2 skin lesions on her left upper chest measuring 3-4 mm, grossly consistent with actinic keratoses, that she wished to have excised. After discussion of risks and benefits, she agreed to proceed and informed consent was obtained. Findings: There was no obvious evidence of residual disease in the right breast, and there was a small seroma. Procedure Details After smooth induction of general anesthesia with an LMA, she was placed in the supine position with both arms out, and was prepped and draped in wide sterile fashion. A procedural pause was performed according to the SCOAP checklist, and all were found to be in agreement. Her previous right breast 12:00 vertical incision was reopened sharply. Dissection was carried down through the superficial tissue until a small seroma cavity was encountered and evacuated. A breast parenchymal flap was started on the lateral side and grasped with a Kendall clamp. The lateral margin was reexcised, obtaining approximately 1 cm of tissue in thickness from the entire lateral aspect of the cavity from 12:00 to 6:00. That tissue was oriented with suture and sent for permanent pathology. Several new hemoclips were used to lady the new lateral aspect of the cavity. Hemostasis was adequate. The breast parenchyma was closed with interrupted 3-0 Vicryl sutures in layers, followed by running 4-0 Vicryl subcuticular stitch. On the left upper chest wall, the 2 previously marked skin lesions were excised with a small skin ellipse measuring less than 1 cm each. The size of the actual lesions were 3-4 mm in diameter, grossly consistent with actinic keratoses. Dissection was carried through the subdermal tissue. Those lesions were sent together in one jar for permanent pathology. The skin incisions were closed with 4-0 Vicryl suture. Dermabond was applied to the skin incisions as a dressing. At the end of the case all needle and sponge counts were correct 2. The patient was awakened from anesthesia without difficulty, and taken to the recovery room in satisfactory condition, having tolerated the procedure well. Complications There were no periprocedural complications identified. Surgical Specimen Removed: Yes Specimen sent to Pathology: Yes Surgical Specimen description: Right breast lateral margin. Left chest skin lesions. Anesthetic Plan: GA Grafts, Implants: None Output, Estimated Blood Loss: 10 Blood Administration during mg: No Drains: None Catheters: None copies to: Ceasar Rios; Shant Merino MD, Joshua D MD Jun 10, 2017 08:08
[2017-06-10] MEDS ORDERED: oxyCODONE-Acetamin 5-325 mg Tablet PO PRN (08:25)
--- NOTE | 2017-06-10 08:27 | PCM.DISURG ---
Surgical Discharge Instruction Date of Service Jun 10, 2017 Dates of Hospitalization Date of Hospital Admission Providers Admitting Physician: Primary Care Physician: Ceasar Rios Attending Physician: Jimenez Jones MD Discharge Diagnosis Post Operative diagnosis Same Diet Discharge Diet: No restrictions Activity Discharge Activity-General: Activity as pain allows, No driving while taking narcotic Dressing and Incisional Care Dressing Care: Keep dressing clean, dry & intact Hygiene: May shower, DO NOT soak incision under water, NO bathtub, hot tub or whirlpool Additional Instructions Discharge Instructions Follow up with Dr. Jones within the next 2 weeks. Call at any time with questions or concerns. Follow Up Plan Call your provider for: Fever, Chills, Wound redness, Increasing wound pain, Discharge @ incision, pus discharge Darwin Puente MD Jun 10, 2017 08:27
[2017-06-10] MEDS ORDERED: HYDROmorphone 0.5 mg/0.5 mL iSecure Syringe ONE (08:29)
--- NOTE | 2017-06-10 08:37 | PCM.ANEP1 ---
Post Anesthesia PACU Phase 1 Assessment Vital Signs Vital Signs Date Time Temp Pulse Resp B/P Pulse Ox O2 Delivery O2 Flow Rate FiO2 06/10/17 08:35 71 13 125/59 96 Nasal Cannula 3 06/10/17 08:30 69 12 120/61 96 Nasal Cannula 3 06/10/17 08:25 67 12 126/52 96 Nasal Cannula 3 06/10/17 08:22 35.9 68 11 123/49 97 Nasal Cannula 3 06/10/17 06:03 36.3 64 16 131/64 95 Room Air Anesthetic Administered: GA Level of Alertness: Sleepy, easy to arouse GOODMAN's with Equal Strength: Yes Pain: No Nausea or Vomiting: No CV Function & Hydration Stable: Yes Airway Device: Oxygen Delivery: Nasal Cannula Lungs: Normal Air Movement Dermatome Level: Full Sensation PACU Phase 2 Assessment Complications: No Follow up Care: N/A Patient Instructions Provided: N/A Oscar Du MD Jun 10, 2017 08:37
--- NOTE | 2017-06-12 16:27 | PATH ---
SURGICAL PATHOLOGY Attending Physician:Alessia Rodriges CASE STATUS: Signed Out PATIENT NAME: MARICHUY POOLE PID: [id number] : 1945 DATE COLLECTED:06/10/2017 22:12 SPECIMEN: 1: Breast Margin 2: Skin, biopsy CLINICAL HISTORY: RIGHT BREAST DUCTAL CARCINOMA IN SITE, LEFT CHEST SKIN LESION 1). RIGHT BREAST LATERAL MARGIN, SHORT STITCH SUPERIOR, LONG STITCH ANTERIOR 2). LEFT CHEST SKIN LESIONS X2 FINAL DIAGNOSIS: 1.BREAST MARGIN, EXCISION: BREAST TISSUE WITH FIBROCYSTIC CHANGES. EXTENSIVE SURGICAL SITE CHANGES. Negative for in situ or invasive carcinoma. 2.SKIN, LEFT CHEST, BIOPSIES: SEBORRHEIC KERATOSES. ICD10 D05.10 GROSS DESCRIPTION: The specimens are received in formalin, labeled with the patient's name, and sublabeled as the following: (1) right breast lateral margin; (2) left chest skin lesions x2. (1) The specimen consists of a piece of breast tissue (4.5 cm AP, 5.2 cm SI, 1.7 cm ML) with no overlying skin. The specimen is oriented with 2 black sutures (short-superior, long- anterior). No localization wire is present. The specimen is serially sectioned SI into 17 slices with the superior and inferior resection margins as slices #1 and #17 respectively. The breast tissue is fatty and diffusely fibrous at the medial margin. Slices #3 and #4 contain a pale irregularly firm area (1.1 x 0.5 x 0.5 cm) located 1.1 from the anterior, 0.7 cm from the posterior, 0.6 cm from the superior, 0.4 cm from the medial and 0.5 cm from the lateral resection margins. Slice #7 contains multiple hard round nodules (0.1 cm) adjacent to one another, 0.6 cm from the irregularly firm area, 1.6 cm from the anterior, 1.1 cm from the posterior; 1.2 cm from the superior, 3.0 cm from the inferior; 0.4 cm from the medial and 0.5 cm from the lateral resection margins. Slice #9 contains a pale irregularly firm area (0.5 x 0.5 x 0.2 cm) located 0.6 cm from the nodules, 2.5 cm in the anterior, 0.7 cm from the posterior, 2.4 cm from the inferior, 0.2 cm in the medial, and 0.7 cm in the lateral resection margins. No defined masses, lesions, or scirrhous areas are identified. Ink code: purple-anterior; yellow-posterior; black-superior; orange-inferior; green-medial; blue-lateral. Section code: (1A) superior resection margin, perpendicularly sectioned; (1B) slice #2; (1C) slice #3; (1D) slice #4; (1E) slice #5; (1F) slice #6; (1G) slice #7; (1H) slice #8; (1I) slice #9; (1J) slice #10; (1K) slice #11; (1L) slice #12; (1M) slice #13; (1N) slice #14; (1O) slice #15; (1P) slice #16; (1Q-1R) inferior resection margin, perpendicularly sectioned and submitted ML. Specimen entirely submitted. No colon approximately the fixation time in formalin-3 35 hours and 30 minutes calculated using a collection date of June 10, 2017 with a collection time of 0746. (2) The specimen consists of 2 unoriented pieces of scott-dela cruz skin with subcutaneous tissue (piece #1-1.0 x 0.6 x 0.2 cm; piece #2-0.7 x 0.3 x 0.1 cm). Each piece contains a scott-white solid rubbery well-circumscribed papule (0.3 x 0.2 x 0.1 cm and 0.4 x 0.3 x 0.3 cm respectively) less than 0.1 cm from the resection margin. Section code: (2A) piece #1, bisected; (2B) piece #2, bisected. Specimen entirely submitted. 06/11/17 ICD-9 CODES: CPT CODES: 1: 08319 2: 45383 Electronically Signed Out Andrez Moreira MD, Ph.D. Formerly [facility] Pathology [facility] [address], [place] [address] Technical component performed at [facility], [address] [place] [address] Ave[address], [place], [address]
== END 2017-06-10 23:59 | disposition home or self-care (01) ==
LOC: SAS 05:46
PROVIDERS: ATTEND Student in an Organized Health Care Education/Training Program
DX: C50.412 Malignant neoplasm of upper-outer quadrant of left female breast (principal); E03.9 Hypothyroidism, unspecified; L82.1 Other seborrheic keratosis; D48.5 Neoplasm of uncertain behavior of skin; Z79.899 Other long term (current) drug therapy; Z87.891 Personal history of nicotine dependence
CPT/HCPCS: 11400; 19301; J1100; J1170; J2270; J2405; J2765; J3010; J7120